=== PATIENT | female | born 1970 | race Caucasian/White ===

== ENCOUNTER 2022-02-21 08:47 | Emergency (ER) | payer MEDICAID ==
[~2022-02-21] VITALS: Ht 154.9 cm; Wt 50.0 kg
[2022-02-21 09:10] VITALS: BP 120/58
[2022-02-21] MEDS ORDERED: PERM60CR4 TOP (10:47)
[2022-02-21] MEDS ORDERED: HYDR-3686 PO (10:47)
== END 2022-02-21 11:00 | disposition home or self-care (01) ==
LOC: ER 08:48
DX: B86 Scabies (principal); F17.200 Nicotine dependence, unspecified, uncomplicated; Z88.8 Allergy status to other drugs, medicaments and biological substances; Z56.0 Unemployment, unspecified
CPT/HCPCS: 99283